=== PATIENT | female | born 1975 | race Caucasian/White ===

== ENCOUNTER 2023-07-28 10:47 | Inpatient (IN) | payer OTHER ==
[2023-07-28 12:00] VITALS: BMI 27.8
[2023-07-28] MEDS ORDERED: morphine SULFATE 4 MG/ML VIAL ONE ×2 (13:07→16:42)
[2023-07-28] MEDS ORDERED: VANCOMYCIN 1 GRAM (PRE-DOCKED) 1,000 MG/250 ML BAG IVPB ONE ×2 (13:07→23:03)
[2023-07-28] MEDS ORDERED: PIPERACILLIN/TAZOB 3.375 GM 3.375 GM/50 ML BAG IVPB ONE ×2 (13:08→23:03)
[2023-07-28] MEDS: ACETAMINOPHEN 1000 MG/100 ML BAG IVPB ONE (13:30)
[2023-07-28] MEDS: morphine SULFATE 4 MG/ML VIAL IVPUSH ONE (13:30)
[2023-07-28] MEDS ORDERED: ACETAMINOPHEN INJECTION 100 ML IVPB ONE (13:33)
[2023-07-28 13:39] LABS: EOS % 3.4 % (0-4.5); HEMOGLOBIN 10.1 GM/dL (10.7-15.3); LYMPH % 7.1 % (8-40); MCHC 30.7 g/dl (32.0-36.0); MEAN CELL VOLUME 81.3 fl (80-96); MEAN PLT VOLUME 8.2 fl (7.5-11.1); MONO % 7.8 % (3.8-10.2); NEUT % 80.7 % (42.8-82.8); PLATELET COUNT 449 10^3/uL (134-434); RBC 4.05 M/mm3 (3.60-5.2); RDW 18.6 % (11.6-15.6); WHITE BLOOD COUNT 15.8 K/mm3 (4.0-10.0)
[2023-07-28 13:41] LABS: VENOUS BASE EXCESS 2.2 mmol/L (-2-2); VENOUS O2 SATURATION 64.7 % (70-80); VENOUS PCO2 46.7 mmHg (38-52); VENOUS PH 7.392 (7.310-7.410)
[2023-07-28 13:46] LABS: INR 1.77 (0.83-1.09); PROTHROMBIN TIME (PATIENT) 20.4 SEC (9.7-13.0)
[2023-07-28 13:48] LABS: ACTIVATED PTT 36.5 SECONDS (25.2-36.5)
[2023-07-28] MEDS: PIPERACILLIN/TAZOB 3.375 GM 3.375 GM in DEXTROSE 5%-WATER - 50 ML IVPB ONE (14:08)
[2023-07-28] MEDS: LACTATED RINGERS SOLUTION 1000 ML INFUS.BAG IV ONE (14:08)
[2023-07-28 14:12] LABS: POTASSIUM 4.2 mmol/L (3.5-5.1)
[2023-07-28 14:14] LABS: CALCIUM 9.2 mg/dL (8.5-10.1)
[2023-07-28 14:15] LABS: ALBUMIN 2.7 g/dl (3.4-5.0); BLOOD UREA NITROGEN 20.5 mg/dL (7-18); MAGNESIUM 1.8 mg/dL (1.8-2.4)
[2023-07-28 14:18] LABS: CREATININE 0.5 mg/dL (0.55-1.3)
[2023-07-28 14:19] LABS: TOT PROT 7.7 g/dl (6.4-8.2)
[2023-07-28 14:20] LABS: BILIRUBIN,TOTAL 0.2 mg/dL (0.2-1)
[2023-07-28] MEDS: VANCOMYCIN 1,000 MG in DEXTROSE 5%-WATER - 250 ML IVPB ONE (14:30)
[2023-07-28] MEDS: morphine CARPU-JECT 4 MG/1 ML DISP.SYRIN IVPUSH ONE (16:54)
[2023-07-28 18:09] LABS: EPI CELLS 4 /uL (0-25.1); HYALINE CASTS 0 /uL (0-3.1); URINE APPEARANCE CLOUDY; URINE BACTERIA 313 /uL (0-1359); URINE BILIRUBIN NEGATIVE (NEGATIVE); URINE COLOR YELLOW; URINE GLUCOSE (UA) NEGATIVE (NEGATIVE); URINE KETONE NEGATIVE (NEGATIVE); URINE LEUK ESTERASE 1+ (NEGATIVE); URINE NITRITE NEGATIVE (NEGATIVE); URINE PROTEIN 2+ (NEGATIVE); URINE WBC 210 /uL (0-25.8)
[2023-07-28] MEDS ORDERED: QUEtiapine FUMARATE 100 MG TABLET (FP) ONE (20:53)
[2023-07-28] MEDS ORDERED: TOPIRAMATE 25 MG TABLET ONE (20:53)
[2023-07-28] MEDS ORDERED: GABAPENTIN 100 MG CAPSULE ONE (20:53)
[2023-07-28] MEDS ORDERED: APIXABAN 2.5 MG TABLET ONE (20:53)
[2023-07-28] MEDS ORDERED: MIRTAZAPINE 15 MG TABLET (FP) ONE ×2 (20:53→20:54)
[2023-07-28] MEDS: APIXABAN 2.5 MG TABLET PO SCH (21:11)
[2023-07-28] MEDS: TOPIRAMATE 25 MG TABLET PO SCH (21:12)
[2023-07-28] MEDS: GABAPENTIN 100 MG CAPSULE PO SCH (21:12)
[2023-07-28] MEDS: QUEtiapine FUMARATE 300 MG TABLET PO SCH (21:12)
[2023-07-28] MEDS: MIRTAZAPINE 15 MG TABLET (FP) PO SCH (21:12)
[2023-07-28] MEDS: VANCOMYCIN/WATER FOR INJ (PEG) 1,000 MG/200 ML BAG IVPB SCH (23:05)
[2023-07-29] MEDS: PIPERACILLIN/TAZOB 3.375 GM 3.375 GM in DEXTROSE 5%-WATER - 50 ML IVPB SCH (02:00)
[2023-07-29] MEDS: morphine SULFATE 4 MG/ML VIAL IVPUSH ONE ×2 (04:55→21:20)
[2023-07-29] MEDS ORDERED: morphine SULFATE 4 MG/ML VIAL ONE ×2 (04:56→22:00)
[2023-07-29] MEDS ORDERED: VANCOMYCIN 1 GRAM (PRE-DOCKED) 1,000 MG/250 ML BAG IVPB ONE ×2 (08:28→22:03)
[2023-07-29] MEDS ORDERED: oxyCODONE HCL 10 MG SUSTAINED ACTING TABLET ONE (08:30)
[2023-07-29] MEDS: oxyCODONE HCL 20 MG SUSTAINED ACTING TABLET PO SCH (09:38)
[2023-07-29] MEDS: ESCITALOPRAM OXALATE 10 MG TABLET PO SCH (09:38)
[2023-07-29] MEDS: FOLIC ACID 1 MG TABLET (FP) PO SCH (09:38)
[2023-07-29] MEDS: PANTOPRAZOLE 40 MG TABLET PO SCH (09:40)
[2023-07-29] MEDS: THIAMINE HCL 100 MG TABLET (FP) PO SCH (10:25)
[2023-07-29] MEDS ORDERED: PIPERACILLIN/TAZOB 3.375 GM 3.375 GM/50 ML BAG IVPB ONE ×2 (10:56→18:53)
[2023-07-29] MEDS ORDERED: APIXABAN 2.5 MG TABLET ONE (22:01)
[2023-07-29] MEDS ORDERED: QUEtiapine FUMARATE 100 MG TABLET (FP) ONE (22:01)
[2023-07-29] MEDS ORDERED: MIRTAZAPINE 15 MG TABLET (FP) ONE (22:01)
[2023-07-29] MEDS ORDERED: GABAPENTIN 100 MG CAPSULE ONE (22:02)
[2023-07-30] MEDS ORDERED: PIPERACILLIN/TAZOB 3.375 GM 3.375 GM/50 ML BAG IVPB ONE ×2 (02:35→09:33)
[2023-07-30] MEDS ORDERED: oxyCODONE HCL 20 MG SUSTAINED ACTING TABLET PO SCH (08:10)
[2023-07-30] MEDS ORDERED: HYDROmorphone HCL 2 MG TABLET PO PRN (08:10)
[2023-07-30] MEDS ORDERED: morphine SULFATE 4 MG/ML VIAL ONE ×2 (09:30→14:09)
[2023-07-30] MEDS ORDERED: oxyCODONE HCL 10 MG SUSTAINED ACTING TABLET ONE (09:30)
[2023-07-30] MEDS: oxyCODONE HCL 10 MG SUSTAINED ACTING TABLET PO SCH (09:32)
[2023-07-30] MEDS ORDERED: PANTOPRAZOLE SODIUM 40 MG VIAL ONE (09:33)
[2023-07-30] MEDS: morphine SULFATE 4 MG/ML VIAL IVPUSH PRN (09:36)
[2023-07-30] MEDS ORDERED: VANCOMYCIN 1 GRAM (PRE-DOCKED) 1,000 MG/250 ML BAG IVPB ONE (10:54)
[2023-07-30 15:51] LABS: BASO % 0.6 % (0-2.0); EOS % 6.6 % (0-4.5); HEMATOCRIT 29.1 % (32.4-45.2); LYMPH % 10.8 % (8-40); MCH 24.8 pg (25.7-33.7); MCHC 30.9 g/dl (32.0-36.0); MEAN CELL VOLUME 80.2 fl (80-96); MEAN PLT VOLUME 7.8 fl (7.5-11.1); MONO % 9.9 % (3.8-10.2); NEUT % 72.1 % (42.8-82.8); PLATELET COUNT 287 10^3/uL (134-434); RBC 3.63 M/mm3 (3.60-5.2); RDW 18.8 % (11.6-15.6); WHITE BLOOD COUNT 8.5 K/mm3 (4.0-10.0)
[2023-07-30 16:15] LABS: POTASSIUM 3.3 mmol/L (3.5-5.1)
[2023-07-30 16:17] LABS: CALCIUM 8.7 mg/dL (8.5-10.1)
[2023-07-30 16:18] LABS: ALBUMIN 2.2 g/dl (3.4-5.0); BLOOD UREA NITROGEN 16.5 mg/dL (7-18)
[2023-07-30 16:21] LABS: CREATININE 0.7 mg/dL (0.55-1.3)
[2023-07-30 16:22] LABS: BILIRUBIN,TOTAL 0.2 mg/dL (0.2-1); TOT PROT 6.7 g/dl (6.4-8.2)
[2023-07-30] MEDS: MIRTAZAPINE 30 MG TABLET PO SCH (21:29)
[2023-07-31] MEDS: POTASSIUM CHLORIDE ORAL LIQUID 20 MEQ/15 ML PO ONE (01:32)
[2023-07-31] MEDS ORDERED: QUEtiapine FUMARATE 100 MG TABLET (FP) ONE (22:11)
[2023-08-01] MEDS ORDERED: QUEtiapine FUMARATE 100 MG TABLET (FP) ONE (20:56)
[2023-08-02] MEDS: ACETAMINOPHEN 1000 MG/100 ML BAG IVPB ONE (20:50)
[2023-08-02] MEDS ORDERED: QUEtiapine FUMARATE 100 MG TABLET (FP) ONE (23:35)
[2023-08-02] MEDS: HYDROmorphone HCL 2 MG TABLET PO ONE (23:38)
[2023-08-03] MEDS: ACETAMINOPHEN 1000 MG/100 ML BAG IVPB ONE (03:47)
[2023-08-03] MEDS: oxyCODONE HCL 5 MG TABLET PO PRN (14:20)
[2023-08-03] MEDS ORDERED: QUEtiapine FUMARATE 100 MG TABLET (FP) ONE (20:45)
[2023-08-03] MEDS: ACETAMINOPHEN 1000 MG/100 ML BAG IVPB PRN (23:19)
[2023-08-04] MEDS ORDERED: QUEtiapine FUMARATE 100 MG TABLET (FP) ONE (21:12)
[2023-08-05 09:34] LABS: BASO % 0.5 % (0-2.0); EOS % 4.1 % (0-4.5); HEMATOCRIT 28.5 % (32.4-45.2); HEMOGLOBIN 8.8 GM/dL (10.7-15.3); LYMPH % 11.4 % (8-40); MCH 24.6 pg (25.7-33.7); MCHC 30.8 g/dl (32.0-36.0); MEAN CELL VOLUME 79.8 fl (80-96); MEAN PLT VOLUME 8.1 fl (7.5-11.1); MONO % 6.9 % (3.8-10.2); NEUT % 77.1 % (42.8-82.8); PLATELET COUNT 313 10^3/uL (134-434); RBC 3.57 M/mm3 (3.60-5.2); RDW 18.7 % (11.6-15.6); WHITE BLOOD COUNT 9.5 K/mm3 (4.0-10.0)
[2023-08-05 09:59] LABS: POTASSIUM 3.5 mmol/L (3.5-5.1)
[2023-08-05 10:03] LABS: BLOOD UREA NITROGEN 16.5 mg/dL (7-18); CALCIUM 9.2 mg/dL (8.5-10.1)
[2023-08-05 10:04] LABS: ALBUMIN 2.2 g/dl (3.4-5.0)
[2023-08-05 10:07] LABS: CREATININE 0.5 mg/dL (0.55-1.3)
[2023-08-05 10:08] LABS: BILIRUBIN,TOTAL 0.4 mg/dL (0.2-1); TOT PROT 6.7 g/dl (6.4-8.2)
[2023-08-05] MEDS: ACETAMINOPHEN 500 MG TABLET (FP) PO SCH (13:28)
[2023-08-05] MEDS ORDERED: QUEtiapine FUMARATE 100 MG TABLET (FP) ONE (21:47)
[2023-08-06] MEDS: POLYETHYLENE GLYCOL (HEALTHYLAX) 3350 17 GM PACKET PO SCH (13:46)
[2023-08-06] MEDS: DOCUSATE SODIUM 100 MG CAPSULE (FP) PO SCH (13:47)
[2023-08-06] MEDS ORDERED: QUEtiapine FUMARATE 100 MG TABLET (FP) ONE (21:06)
[2023-08-07] MEDS: IRON SUCROSE INJECTION 200 MG in SODIUM CHLORIDE 90 ML IVPB ONE ×2 (05:10→12:50)
[2023-08-07] MEDS: LISINOPRIL 5 MG TABLET PO SCH (09:46)
[2023-08-07 16:36] VITALS: BP 100/58; PULSE 123; RESP 20; TEMP 97.6
== END 2023-08-07 18:12 | DRG 383 ==
LOC: JER 10:47 → JERBED 12:50 → J5S 07-30 17:02
PROVIDERS: ADMIT Internal Medicine; ATTEND Internal Medicine
DX: L03.116 Cellulitis of left lower limb (principal); L03.115 Cellulitis of right lower limb; U07.1 COVID-19; I31.39 Other pericardial effusion (noninflammatory); B96.5 Pseudomonas (aeruginosa) (mallei) (pseudomallei) as the cause of diseases classified elsewhere; B96.1 Klebsiella pneumoniae [K. pneumoniae] as the cause of diseases classified elsewhere; B96.20 Unspecified Escherichia coli [E. coli] as the cause of diseases classified elsewhere; B95.62 Methicillin resistant Staphylococcus aureus infection as the cause of diseases classified elsewhere; M34.89 Other systemic sclerosis; I48.91 Unspecified atrial fibrillation; I35.0 Nonrheumatic aortic (valve) stenosis; E87.6 Hypokalemia; F41.9 Anxiety disorder, unspecified; S71.002A Unspecified open wound, left hip, initial encounter; S71.001A Unspecified open wound, right hip, initial encounter; X58.XXXA Exposure to other specified factors, initial encounter; Y93.9 Activity, unspecified; Y92.9 Unspecified place or not applicable; Y99.9 Unspecified external cause status
CPT/HCPCS: 0241U-QW; 36415; 73701-TC-RT; 80053; 81003; 82728; 82803; 83540; 83550; 83605; 83735; 84466; 85025; 85610; 85730; 86850; 86900; 86901; 87040; 87070; 87086; 87186; 87205; 87635; 93005; 93010; 99285-25; G0480; J0131; Q9967

== ENCOUNTER 2023-08-13 09:36 | Inpatient (IN) | payer OTHER ==
[2023-08-13] MEDS ORDERED: ACETAMINOPHEN INJECTION 100 ML IVPB ONE (11:31)
[2023-08-13] MEDS: ACETAMINOPHEN 1000 MG/100 ML BAG IVPB ONE (11:32)
[2023-08-13 11:46] LABS: BASO % 0.5 % (0-2.0); EOS % 0.1 % (0-4.5); HEMATOCRIT 34.9 % (32.4-45.2); HEMOGLOBIN 10.5 GM/dL (10.7-15.3); LYMPH % 9.6 % (8-40); MCH 24.2 pg (25.7-33.7); MCHC 30.1 g/dl (32.0-36.0); MEAN CELL VOLUME 80.4 fl (80-96); MEAN PLT VOLUME 8.6 fl (7.5-11.1); MONO % 6.6 % (3.8-10.2); NEUT % 83.2 % (42.8-82.8); PLATELET COUNT 568 10^3/uL (134-434); RBC 4.34 M/mm3 (3.60-5.2); RDW 20.2 % (11.6-15.6)
[2023-08-13 12:05] LABS: POTASSIUM 4.3 mmol/L (3.5-5.1)
[2023-08-13 12:06] LABS: CALCIUM 10.1 mg/dL (8.5-10.1)
[2023-08-13 12:07] LABS: BLOOD UREA NITROGEN 33.1 mg/dL (7-18)
[2023-08-13 12:09] LABS: CREATININE 0.8 mg/dL (0.55-1.3)
[2023-08-13] MEDS ORDERED: metoPROLOL SUCCINATE 25 MG TAB.SR.24H (FP) PO ONE (12:09)
[2023-08-13 12:11] LABS: BILIRUBIN,TOTAL 0.5 mg/dL (0.2-1); TOT PROT 8.4 g/dl (6.4-8.2)
[2023-08-13] MEDS: METOPROLOL TARTRATE 25 MG TABLET (FP) PO ONE ×2 (12:14→14:14)
[2023-08-13 12:22] LABS: ALBUMIN 2.9 g/dl (3.4-5.0)
[2023-08-13] MEDS ORDERED: LORazepam 1 MG TABLET ONE (12:31)
[2023-08-13] MEDS: LORazepam 2 MG TABLET PO ONE (12:40)
[2023-08-13] MEDS: morphine CARPU-JECT 2 MG/1 ML DISP.SYRIN IVPUSH ONE (13:10)
[2023-08-13] MEDS: SODIUM CHLORIDE 0.9% 500 ML INFUS.BAG IV ONE (13:10)
[2023-08-13 13:36] LABS: INR 2.84 (0.83-1.09); PROTHROMBIN TIME (PATIENT) 32.6 SEC (9.7-13.0)
[2023-08-13 13:39] LABS: ACTIVATED PTT 32.2 SECONDS (25.2-36.5)
[2023-08-13 14:03] LABS: LACTIC ACID 2.3 mmol/L (0.4-2.0)
[2023-08-13] MEDS ORDERED: METOPROLOL TARTRATE 25 MG TABLET (FP) ONE (14:09)
[2023-08-13] MEDS: METOPROLOL TARTRATE 50 MG TABLET (FP) PO SCH (23:35)
[2023-08-13] MEDS: APIXABAN 2.5 MG TABLET PO SCH (23:35)
[2023-08-14] MEDS ORDERED: DEXAMETHASONE SOD PHOSPHATE 4 MG/1 ML VIAL ONE (00:06)
[2023-08-14] MEDS: DEXAMETHASONE SOD PHOSPHATE 10 MG/1 ML VIAL IVPUSH SCH (00:17)
[2023-08-14] MEDS ORDERED: oxyCODONE HCL 5 MG TABLET ONE (10:07)
[2023-08-14] MEDS: oxyCODONE HCL 5 MG TABLET PO PRN (10:11)
[2023-08-14] MEDS: oxyCODONE HCL 5 MG TABLET PO ONE (11:16)
[2023-08-14 12:59] LABS: BASO % 0.1 % (0-2.0); HEMOGLOBIN 10.2 GM/dL (10.7-15.3); MCH 24.1 pg (25.7-33.7); MCHC 29.2 g/dl (32.0-36.0); MEAN CELL VOLUME 82.4 fl (80-96); MEAN PLT VOLUME 8.5 fl (7.5-11.1); MONO % 6.4 % (3.8-10.2); NEUT % 87.5 % (42.8-82.8); PLATELET COUNT 450 10^3/uL (134-434); RBC 4.24 M/mm3 (3.60-5.2); RDW 20.5 % (11.6-15.6); WHITE BLOOD COUNT 12.3 K/mm3 (4.0-10.0)
[2023-08-14 13:09] LABS: INR 2.97 (0.83-1.09); PROTHROMBIN TIME (PATIENT) 34.1 SEC (9.7-13.0)
[2023-08-14 13:19] LABS: POTASSIUM 4.9 mmol/L (3.5-5.1)
[2023-08-14] MEDS: oxyCODONE HCL 5 MG TABLET PO SCH (13:20)
[2023-08-14 13:21] LABS: CALCIUM 9.3 mg/dL (8.5-10.1)
[2023-08-14 13:22] LABS: ALBUMIN 2.6 g/dl (3.4-5.0); BLOOD UREA NITROGEN 42.3 mg/dL (7-18)
[2023-08-14] MEDS ORDERED: DEXAMETHASONE SOD PHOSPHATE 10 MG/1 ML VIAL ONE (13:23)
[2023-08-14 13:25] LABS: CREATININE 1.2 mg/dL (0.55-1.3)
[2023-08-14 13:26] LABS: BILIRUBIN,TOTAL 0.4 mg/dL (0.2-1); TOT PROT 7.7 g/dl (6.4-8.2)
[2023-08-14 13:33] LABS: ANISOCYTOSIS 1+; MACROCYTOSIS 1+
[2023-08-14] MEDS: LACTATED RINGERS SOLUTION 1,000 ML/1,000 ML INFUS.BAG IV SCH (13:42)
[2023-08-14 21:02] VITALS: BMI 28.8
[2023-08-14] MEDS ORDERED: oxyCODONE HCL 5 MG TABLET PO SCH (22:00)
[2023-08-14] MEDS: METOPROLOL TARTRATE 50 MG TABLET (FP) PO SCH (22:06)
[2023-08-14] MEDS: REMDESIVIR 200 MG in SODIUM CHLORIDE 250 ML IVPB ONE (22:09)
[2023-08-15 06:20] VITALS: BP 99/77; PULSE 116; RESP 18; TEMP 98.4
[2023-08-15] MEDS: oxyCODONE HCL 5 MG TABLET PO SCH (08:50)
[2023-08-15] MEDS ORDERED: CALCIUM GLUCONATE 10% - 1,000 MG/10 ML VIAL ONE (11:33)
[2023-08-15] MEDS ORDERED: NALOXONE HCL 0.4 MG/ML VIAL ONE (11:38)
[2023-08-15] MEDS ORDERED: EPINEPHrine/PF 1 MG/1 ML (1:1,000) AMPULE ONE (11:50)
[2023-08-15] MEDS ORDERED: REMDESIVIR 100 MG in SODIUM CHLORIDE 250 ML IVPB SCH (21:00)
== END 2023-08-15 15:38 | disposition expired | DRG 137 ==
LOC: JER 09:36 → JERBED 12:31 → J4W 08-14 16:52 → JERBED 08-14 16:52 → J4W 08-14 18:22 → JICU 08-15 12:23
PROVIDERS: ADMIT Internal Medicine; ATTEND Internal Medicine
PROC: XW033E5 Introduction of Remdesivir Anti-infective into Peripheral Vein, Percutaneous Approach, New Technology Group 5 (ICD-10-PCS; 2023-08-14)
PROC: 0BH17EZ Insertion of Endotracheal Airway into Trachea, Via Natural or Artificial Opening (ICD-10-PCS; principal; 2023-08-15)
PROC: 5A1935Z Respiratory Ventilation, Less than 24 Consecutive Hours (ICD-10-PCS; 2023-08-15)
DX: U07.1 COVID-19 (principal); M34.9 Systemic sclerosis, unspecified; F31.9 Bipolar disorder, unspecified; K21.9 Gastro-esophageal reflux disease without esophagitis; I48.91 Unspecified atrial fibrillation; I10 Essential (primary) hypertension; I35.0 Nonrheumatic aortic (valve) stenosis; F41.8 Other specified anxiety disorders; I25.10 Atherosclerotic heart disease of native coronary artery without angina pectoris; K76.89 Other specified diseases of liver; J84.9 Interstitial pulmonary disease, unspecified; R79.89 Other specified abnormal findings of blood chemistry; J90 Pleural effusion, not elsewhere classified; J98.11 Atelectasis; J96.01 Acute respiratory failure with hypoxia; I46.9 Cardiac arrest, cause unspecified
CPT/HCPCS: 0241U-QW; 36415; 71045-TC-FY; 71275-TC; 74174-TC; 80053; 80307; 82550; 82977; 83516; 83605; 83690; 84484; 85025; 85610; 85730; 86038; 86140; 86704; 86708; 86803; 87040; 87340; 87517; 93005; 93010; 93975; 99291; J0131; J0248; J1100; Q9967